=== PATIENT | male | born 1980 | race Two or more races ===

== ENCOUNTER 2019-01-08 14:06 | Emergency (ER) | payer MEDICAID ==
[~2019-01-08] VITALS: Ht 157.5 cm; Wt 77.1 kg
--- NOTE | 2019-01-08 14:06 | NUR ---
CAME IN FOR HEADACHE X 3 DAYS,AGGRAVATED BY MOVEMENT OF THE HEAD, VOMITTING x 1 THIS AM. RECENTLY TREATED FOR SINUSITIS. TO ER BED 3, HOOKED TO MONITOR, CHANGED TO GOWN, PROVIDE W WARM BLANKET, AWAITING MD GUERRERO
--- NOTE | 2019-01-08 16:42 | NUR ---
DR HINSON AT BEDSIDE
[2019-01-08] MEDS ORDERED: METOCLOPRAMIDE HCL 10 MG/2 ML VIAL ONE (16:56)
[2019-01-08 16:58] LABS: BASOPHILS # (AUTO) 0.1 /CMM (0.0-0.2); BASOPHILS % (AUTO) 0.7 % (0.0-2.0); EOSINOPHILS % (AUTO) 0.2 % (0.0-6.0); HEMATOCRIT 46 % (39-51); HEMOGLOBIN 15.4 g/dL (13.5-17.5); LYMPHOCYTES # (AUTO) 1.8 /CMM (0.8-4.8); LYMPHOCYTES % (AUTO) 15.3 % (20.0-44.0); MEAN CORPUSCULAR HGB CONC 34 g/dl (31.0-36.0); MEAN CORPUSCULAR VOLUME 86 fL (80-96); MONOCYTES # (AUTO) 0.7 /CMM (0.1-1.30); MONOCYTES % (AUTO) 5.7 % (2.0-12.0); NEUTROPHILS # (AUTO) 9.2 /CMM (1.8-8.9); NEUTROPHILS % (AUTO) 78.1 % (43.0-81.0); PLATELET COUNT (AUTO) 297 /CMM (150-450); RED BLOOD CELL COUNT(AUTO) 5.37 MIL/uL (4.5-6.0); WHITE BLOOD COUNT (AUTO) 11.7 K/uL (4.3-11.0)
[2019-01-08] MEDS: IV NS 0.9% 1,000 ML BAG IV ONE (17:02)
[2019-01-08] MEDS: METOCLOPRAMIDE HCL 10 MG/2 ML VIAL IV ONE (17:03)
--- NOTE | 2019-01-08 17:05 | NUR ---
WHEELED OUT VIA RNEY FOR CT SCAN
[2019-01-08 17:08] LABS: CALCIUM, SERUM 9.5 mg/dL (8.5-10.1); POTASSIUM 4.4 mmol/L (3.5-5.1)
[2019-01-08 18:23] VITALS: BP 121/74
--- NOTE | 2019-01-08 18:23 | NUR ---
IV removed. Catheter intact and site benign. Pressure and 4x4 applied to site. No bleeding noted.Patient discharged to home in stable condition. Written and verbal after care instructions given. Patient verbalizes understanding of instruction.
== END 2019-01-08 18:24 | disposition home or self-care (01) ==
LOC: ER 14:10
DX: R51 Headache (principal); J32.9 Chronic sinusitis, unspecified; R11.10 Vomiting, unspecified; R42 Dizziness and giddiness
CPT/HCPCS: 36415; 70450; 80048; 83605; 85025; 96361; 96374; 99284; J2765; J7030 ×2